=== PATIENT | female | born 1950 | race Caucasian/White ===

== ENCOUNTER → 2019-11-03 | Outpatient (CLI) | payer MEDICARE ==
--- NOTE | 2019-11-03 18:10 | RAD ---
Indication: Postmenopausal screening for osteoporosis. COMPARISON: None available. Bone Density: -BMD: (g/cm2) - AP Spine Total (L1-L4).......... 1.009. - Total right Hip................. 0.740. T-Score: - AP Spine Total (L1-L4)......... -1.4. - Total right Hip................. -1.7. Z-Score: - AP Spine Total (L1-L4).......... -0.3. - Total right Hip................. -0.7. World Health Organization criteria for BMD interpretation classify patients as Normal (T-score at or above -1.0), Osteopenic (T-score between -1.0 and -2.5), or Osteoporotic (T-score at or below -2.5). Impression: 1. AP Spine Total L1-L4--- osteopenia. 2. Total right Hip--- osteopenia. Electronically signed by: Dayday Lane MD (11/03/2019 6:07 PM) [facility]
--- NOTE | 2019-11-08 17:24 | RAD ---
DATE: 11/03/2019. EXAM: MAMMO LEXA SCREENING BILATERAL. HISTORY: Routine mammographic screening. COMPARISON: 10/28/2017. This study was interpreted with the benefit of Computerized Aided Detection (CAD). FINDINGS: Breast Density: SCATTERED The breast parenchyma shows scattered fibroglandular densities. Breast parenchyma level B.. There are no suspicious masses, microcalcifications or architectural distortion. A benign lymph node in the right upper outer quadrant is again noted. The parenchymal pattern is stable. BI-RADS CATEGORY: 2 BENIGN FINDING(S). RECOMMENDED FOLLOW-UP: 12M 12 MONTH FOLLOW-UP. PQRS compliance statement: Patient information was entered into a reminder system with a target due date 11/03/2020 for the next mammogram. Mammography is a sensitive method for finding small breast cancers, but it does not detect them all and is not a substitute for careful clinical examination. A negative mammogram does not negate a clinically suspicious finding and should not result in delay in biopsying a clinically suspicious abnormality. "Our facility is accredited by the [employer] Mammography [employer]."
== END | disposition home or self-care (01) ==
LOC: DXRAD 09:45
PROVIDERS: ATTEND Family Medicine
DX: Z13.820 Encounter for screening for osteoporosis (principal); Z12.31 Encounter for screening mammogram for malignant neoplasm of breast; M85.88 Other specified disorders of bone density and structure, other site; Z78.0 Asymptomatic menopausal state
CPT/HCPCS: 77063; 77067; 77080

== ENCOUNTER → 2020-11-09 | Outpatient (CLI) | payer MEDICARE ==
--- NOTE | 2020-11-12 12:24 | RAD ---
DATE: 11/09/2020 8:00 AM EXAM: MAMMO LEXA SCREENING BILATERAL HISTORY: Screening COMPARISON: 11/03/2019 Bilateral CC and MLO views of the breasts were performed. Bilateral breast tomosynthesis was performed in CC and MLO projections. This study was interpreted with the benefit of Computerized Aided Detection (CAD). FINDINGS: Breast Density: SCATTERED The breast parenchyma shows scattered fibroglandular densities. Breast parenchyma level B No suspicious masses, microcalcifications or architectural distortion is present to suggest malignancy in either breast. The visualized axillae are unremarkable. IMPRESSION: No mammographic evidence of malignancy. BI-RADS CATEGORY: 1 NEGATIVE RECOMMENDED FOLLOW-UP: 12M 12 MONTH FOLLOW-UP Annual screening mammography is recommended, unless clinically indicated sooner based on symptoms or change in physical exam. PQRS compliance statement: Patient information was entered into a reminder system with a target due date for the next mammogram. Mammography is a sensitive method for finding small breast cancers, but it does not detect them all and is not a substitute for careful clinical examination. A negative mammogram does not negate a clinically suspicious finding and should not result in delay in biopsying a clinically suspicious abnormality. "Our facility is accredited by the [employer] Mammography [employer]."
== END ==
LOC: MAMMO 07:54
PROVIDERS: ATTEND Family Medicine
DX: Z12.31 Encounter for screening mammogram for malignant neoplasm of breast (principal); N64.89 Other specified disorders of breast
CPT/HCPCS: 77063; 77067

== ENCOUNTER → 2022-01-14 | Outpatient (CLI) | payer MEDICARE ==
--- NOTE | 2022-01-14 11:25 | RAD ---
INDICATION: Screening for osteopenia/osteoporosis. Postmenopausal screening COMPARISON: October 2019 TECHNIQUE: Bone densitometry was performed through the lumbar spine and proximal femur. IMPRESSION: Lumbar Spine: BMD: 1.0 T-Score: -1.1 Range: Osteopenic. Increased by 4 percent from prior. Proximal Femur: BMD: 0.75 T-Score: -1.7 Range: Osteopenic. Increased by 1 percent from prior. World Health Organization Criteria for Bone Density: T-Score: > -1.0: Normal Range < -1.0 to -2.5: Osteopenic Range < -2.5: Osteoporotic Range Electronically signed by: Tim Klein MD (01/14/2022 11:23 AM) [id number]
--- NOTE | 2022-01-14 13:38 | RAD ---
EXAMINATION: MG BILAT SCREEN+LEXA CLINICAL HISTORY: Screening mammogram TECHNIQUE: Digital craniocaudal and mediolateral oblique views of the bilateral breasts obtained with 3-D tomosynthesis. COMPARISON: 11/09/2020, 11/03/2019 BREAST COMPOSITION: There are scattered areas of fibroglandular density. FINDINGS: No evidence of suspicious mass, calcifications, or areas of architectural distortion. IMPRESSION: No mammographic evidence of malignancy. BI-RADS ASSESSMENT: Category 1: Negative RECOMMENDATION: Return for routine bilateral screening mammogram in one year. PQRS compliance statement - Patient information was entered into a reminder system with a target due date for the next mammogram. "Our facility is accredited by the [employer] Mammography Program." Electronically signed by: Poli Bowman DO (01/14/2022 1:36 PM) [id number]
== END ==
LOC: MAMMO 09:33
PROVIDERS: ATTEND Family Medicine
DX: Z12.31 Encounter for screening mammogram for malignant neoplasm of breast (principal); M85.89 Other specified disorders of bone density and structure, multiple sites
CPT/HCPCS: 77063; 77067; 77080

== ENCOUNTER → 2022-02-24 | Outpatient (CLI) | payer MEDICARE ==
--- NOTE | 2022-02-25 09:55 | RAD ---
EXAMINATION: XR EXAM OF ANKLE_LEFT 3V. HISTORY: 71 years Female Reason: LEFT FOOT AND ANKLE PAIN / : . COMPARISON: None. FINDINGS: No fracture, dislocation or radiopaque foreign body. The joint spaces and articular surfaces appea r unremarkable. Posterior calcaneal spur seen. The ankle mortise and the subtalar joint have normal c onfiguration. IMPRESSION: No acute process. Electronically signed by: Stevan Singh MD (02/25/2022 9:52 AM) [id number]
--- NOTE | 2022-02-25 09:56 | RAD ---
XR FOOT_LEFT 2 VIEWS 02/25/2022 Reason: LEFT FOOT AND ANKLE PAIN Comparison: None Technique: 2 views of the left foot Findings: No acute fracture or dislocation. Mild bunion deformity. Mild degenerative change at the first metata rsophalangeal joint. Small posterior calcaneal enthesophyte. Impression: No acute osseous abnormality. Electronically signed by: Shankar Reich MD (02/25/2022 9:54 AM) [id number]
== END ==
LOC: RAD 16:13
PROVIDERS: ATTEND Family Medicine
DX: M19.072 Primary osteoarthritis, left ankle and foot (principal); M21.612 Bunion of left foot; M77.32 Calcaneal spur, left foot
CPT/HCPCS: 73610; 73620